=== PATIENT | male | born 1990 | race Caucasian/White ===

== ENCOUNTER 2021-06-09 15:19 | Emergency (ER) | payer SELFPAY ==
[~2021-06-09] VITALS: Ht 167.6 cm; Wt 63.5 kg
[~2021-06-09 15:19] MED LIST: NO MEDS
[2021-06-09] MEDS ORDERED: KETOROLAC TROMETHAMINE 30 MG/ML VIAL IM STA (15:33)
[2021-06-09] MEDS ORDERED: ACETAMINOPHEN 325 MG TAB PO ONE (15:45)
== END 2021-06-09 18:08 | disposition home or self-care (01) ==
LOC: ER 15:34
DX: R50.9 Fever, unspecified (principal); J10.1 Influenza due to other identified influenza virus with other respiratory manifestations; Z20.822 Contact with and (suspected) exposure to COVID-19
CPT/HCPCS: 99282; J1885; U0002